=== PATIENT | female | born 1990 | race Caucasian/White ===

== ENCOUNTER 2017-08-25 08:30 | Outpatient (CLI) | payer BC ==
[2017-08-25 09:27] LABS: Appearance,Urine Turbid (Clear); Bacteria,Urine Rare /hpf; Bilirubin,Urine Negative (Negative); Blood,Urine Small (Negative); Budding Yeast,Urine Few /hpf; Color,Urine Yellow; Glucose,Urine (UA) Negative (Negative); Ketones,Urine Negative (Negative); Leukocyte Esterase,Urine Large (Negative); Mucus,Urine Rare /hpf; Nitrite,Urine Negative (Negative); Protein,Urine 1+ (Negative); RBC,Urine 26 /hpf (0-5); Squamous Epithelial Cell,Urine 6 /hpf (0-4); Urobilinogen,Urine <2.0 mg/dL (<2.0); WBC,Urine >182 /hpf (0-5)
[2017-08-25 09:34] VITALS: BP 126/86; PULSE 100; RESP 20; TEMP 98.3
[2017-08-25] MEDS ORDERED: ceFAZolin IN SWFI 2 GM/20 ML SYRINGE IVP ONE (09:43)
[2017-08-25] MEDS ORDERED: LACTATED RINGERS 1,000 ML IV SCH (09:45)
--- NOTE | 2017-08-25 11:27 | P.MSEPDOC ---
Presenting Problems - Arrival Data Date of Arrival on Unit: 08/25/17 Time of Arrival on Unit: 08:25 Mode of Transport: Ambulatory - Complaint OB-Reason for Admission/Chief Complaint: Signs/Symptoms UTI, Other Comment: right flank pain. hx of kidney infections left kidney. last infection 2013. several stints placed abt 10 years ago Medical History - Information : 3 Para: 2 Term: 2 : 0 Abortions: Spontaneous or Elective: 0 Number of Living Children: 2 - Gestational Age Gestational Age by NAVIN (wks/days): 37 Weeks and 1 Days Review of Systems - Review of Systems Constitutional: No problems Breast: No problems ENT: No problems Cardiovascular: No problems Respiratory: No problems Gastrointestinal: No problems Musculoskeletal: No problems Neurological: No problems Skin: No problems Comment: right flank pain. Vital Signs - Temperature Temperature: 98.3 F Temperature Source: Oral - Pulse Right Brachial Pulse Rate: 100 Pulse Assessment Method: Automatic Cuff - Respirations Respiratory Rate: 20 Oxygen Delivery Method: Room Air O2 Sat by Pulse Oximetry: 100 - Blood Pressure Right Arm Blood Pressure: 126/86 Blood Pressure Mean: 99 Blood Pressure Source: Automatic Cuff Medical Screen Scoring (Pre) - Cervical Exam Dilation: 0 cm = 0 Membranes: Intact - Uterine Contractions Frequency: > 5 minutes apart = 1 Duration: N/A Intensity: N/A - Maternal Vital Signs Maternal Temperature: N/A Maternal Blood Pressure: N/A Signs of Preeclampsia: N/A Maternal Respirations: N/A - Pain Assessment Pain Location and Character: Right, Back Pain Scale Used: Numeric (1 - 10) Pain Intensity: 5 Pain Management Goal: 2 Pain Description: *Acute Pain Frequency: Frequent Pain Duration: 2 Pain Duration Units: Days Pain Behavior: None Exhibited Pain Aggravating Factors: Activity, Position, Sitting, Standing Non-Pharmacological Interventions: Darkened Room - Maternal Trauma Maternal Trauma: N/A - Assessment Baseline FHR: 135 Heart Rate - NICHD Category: Category I (Normal) = 0 NST: Reactive Position: N/A Station: N/A - Total Score Total Score (Pre): 1 - Level of Risk Level of Risk: Low (0-5) Physician Notification (Pre) - Physician Notified Physician Notified Date: 08/25/17 Physician Notified Time: 09:45 Physician/Practitioner Notifed:: romo Spoke With: demetrius New Order Received: Yes - Notification Comment Comment: iv, lr, kefzol, urine culture, to take next dose of antibiotic 8 hr post first dose. pt informed. Disposition - Disposition OB Disposition: Discharge to home I agree with the RN Medical Screening Exam: Yes Risk & Benefit of care provided described in d/c instruction: Yes Diagnosis: URINARY TRACT INFECTION, SITE NOT SPECIFIED
== END 2017-08-25 11:25 | disposition home or self-care (01) ==
LOC: FBPOP 08:30
PROVIDERS: ATTEND Obstetrics & Gynecology
DX: O23.43 Unspecified infection of urinary tract in pregnancy, third trimester (principal); Z3A.37 37 weeks gestation of pregnancy
CPT/HCPCS: 59025; 99214; 96360; 96375; 81001; 87086; J0690

== ENCOUNTER 2017-09-06 06:00 | Inpatient (IN) | payer BC ==
[2017-09-06] MEDS ORDERED: LIDOCAINE 1% (PF) 10 MG/ML (30 ML SDV) SQ PRN (06:17)
[2017-09-06] MEDS ORDERED: OXYTOCIN 10 UNIT/ML 1 ML VIAL IM PRN (06:17)
[2017-09-06] MEDS ORDERED: CARBOPROST TROMETHAMINE 250 MCG/ML 1 ML AMP IM PRN (06:17)
[2017-09-06] MEDS ORDERED: METHYLERGONOVINE 0.2 MG/ML 1 ML AMP IM PRN (06:17)
[2017-09-06] MEDS ORDERED: TERBUTALINE 1 MG/ML VIAL SQ PRN (06:17)
[2017-09-06] MEDS ORDERED: OXYTOCIN 20 UNITS/1000 ML NS 1,000 ML IV SCH ×2 (06:30→12:45)
[2017-09-06] MEDS ORDERED: LACTATED RINGERS 1,000 ML IV SCH (06:30)
[2017-09-06 06:40] LABS: Basophils % (A) 0 %; Eosinophils # (A) 0.2 k/uL (0-0.7); Eosinophils % (A) 2 %; HCT 33.6 % (34.0-46.0); HGB 10.6 gm/dL (11.4-16.0); Lymphocytes # (A) 1.8 k/uL (1.0-4.8); Lymphocytes % (A) 22 %; MCH 28.6 pg (25.0-35.0); MCHC 31.7 g/dL (31.0-37.0); MCV 90.2 fL (80.0-100.0); Mean Platelet Volume 7.2; Monocytes # (A) 0.5 k/uL (0-1.0); Monocytes % (A) 7 %; Neutrophils # (A) 5.4 k/uL (1.3-7.7); Neutrophils % (A) 67 %; Platelet Count 322 k/uL (150-450); RBC 3.72 m/uL (3.80-5.40); RDW 15.8 % (11.5-15.5)
[2017-09-06 07:01] VITALS: BMI 25.2
--- NOTE | 2017-09-06 07:51 | P.HPOB ---
History of Present Illness H&P Date: 09/06/17 Chief Complaint: Induction of labor 26-year-old presents at 39 weeks for induction of labor. Her cervix is 2 cm dilated, 70% effaced, and -2 station. She is porter irregularly. heart tones are 130-135 with moderate variability and reactive. Review of Systems All systems: negative Constitutional: Denies chills, Denies fever Eyes: denies blurred vision, denies pain Ears, nose, mouth and throat: Denies headache, Denies sore throat Cardiovascular: Denies chest pain, Denies shortness of breath Respiratory: Denies cough Gastrointestinal: Denies abdominal pain, Denies diarrhea, Denies nausea, Denies vomiting Genitourinary: Denies dysuria, Denies hematuria Musculoskeletal: Denies myalgias Integumentary: Denies pruritus, Denies rash Neurological: Denies numbness, Denies weakness Psychiatric: Denies anxiety, Denies depression Endocrine: Denies fatigue, Denies weight change Past Medical History Past Medical History: Renal Disease Additional Past Medical History / Comment(s): multiple ureter stents. Obstetric history: She has had 2 previous vaginal deliveries the first was 5 lbs. 15 oz. the second one was 6 lbs. 1 oz. This is her third she's had care with me since 11 weeks. Blood type O+, antibodies negative, rubella immune, RPR nonreactive, hep is B-, HIV nonreactive, toxoplasmosis negative. GBS negative. History of Any Multi-Drug Resistant Organisms: None Reported Additional Past Surgical History / Comment(s): multiple ureter stents Past Anesthesia/Blood Transfusion Reactions: No Reported Reaction Smoking Status: Never smoker Past Alcohol Use History: None Reported Past Drug Use History: None Reported - Past Family History Father Family Medical History: Diabetes Mellitus Mother Family Medical History: Hypertension Medications and Allergies Home Medications Medication Instructions Recorded Confirmed Type Calcium Carbonate [Tums] 500 mg PO DIRECTED PRN 08/25/17 09/06/17 History Folic Acid 0.4 mg PO DAILY 08/25/17 09/06/17 History Pnv,Calcium 72/Iron/Folic Acid 1 tab PO DAILY 08/25/17 09/06/17 History [ Plus Tablet] Ranitidine HCl [Zantac] 150 mg PO BID 08/25/17 09/06/17 History Allergies Allergy/AdvReac Type Severity Reaction Status Date / Time No Known Allergies Allergy Verified 09/06/17 06:12 Exam Osteopathic Statement: *. No significant issues noted on an osteopathic structural exam other than those noted in the History and Physical/Consult. - Vital Signs Vital signs: Vital Signs Temp Pulse Resp BP Pulse Ox 09/06/17 06:43 97.4 F L 90 18 134/89 100 Intake and Output 09/05/17 09/06/17 09/06/17 22:59 06:59 14:59 Other: Weight 62.596 kg Heart: Regular rate and rhythm Lungs: Clear to auscultation bilaterally Abdomen: Soft, nontender Extremities: Negative Homans sign Results Result Diagrams: 09/06/17 06:30 Abnormal Lab Results - Last 24 Hours (Table) 09/06/17 Range/Units 06:30 RBC 3.72 L (3.80-5.40) m/uL Hgb 10.6 L (11.4-16.0) gm/dL Hct 33.6 L (34.0-46.0) % RDW 15.8 H (11.5-15.5) % Assessment and Plan (1) Normal labor Current Visit: Yes Status: Acute Code(s): O80 - ENCOUNTER FOR FULL-TERM UNCOMPLICATED DELIVERY; Z37.9 - OUTCOME OF DELIVERY, UNSPECIFIED SNOMED Code(s ): 12526941 Plan: 1. Admit to family place for induction of labor 2. Amniotomy and Pitocin 3. Anticipate normal vaginal delivery
[2017-09-06] MEDS ORDERED: LANOLIN CREAM 5 GM TUBE TOPICAL PRN (12:42)
[2017-09-06] MEDS ORDERED: BENZOCAINE/MENTHOL SPRAY 1 GM/SPRAY AEROSOL TOPICAL PRN (12:42)
[2017-09-06] MEDS ORDERED: diphenhydrAMINE 25 MG CAP PO PRN (12:42)
[2017-09-06] MEDS ORDERED: SIMETHICONE 80 MG CHEWABLE PO PRN (12:42)
[2017-09-06] MEDS ORDERED: ZOLPIDEM 5 MG TAB PO PRN (12:42)
[2017-09-06] MEDS ORDERED: WITCH HAZEL 1 EACH MED..PAD TOPICAL PRN (12:42)
[2017-09-06] MEDS ORDERED: HYDROCORTISONE 2.5% RECTAL CREAM 30 GM TUBE RECTAL PRN (12:42)
[2017-09-06] MEDS ORDERED: diphenhydrAMINE 50 MG CAP PO PRN (12:42)
[2017-09-06] MEDS ORDERED: diphenhydrAMINE 50 MG/ML 1 ML VIAL IVP PRN ×2 (12:42)
[2017-09-06] MEDS ORDERED: HYDROcodone/APAP 5-325MG 1 EACH TAB PO PRN (12:43)
[2017-09-06] MEDS ORDERED: CALCIUM CARBONATE 500 MG CHEWABLE PO PRN (12:43)
--- NOTE | 2017-09-06 12:46 | P.PROBDLV ---
Vaginal Delivery Note - . Vaginal Delivery Note: 26-year-old presents at 39 weeks for induction of labor. Her cervix was 2 cm dilated, 70% effaced, and -2 station. She was porter irregularly. heart tones 135-140 with moderate variability and reactive. Pitocin was started and amniotomy was performed at 7 AM clear fluid noted. Pitocin was increased per protocol and patient was progressing porter every 2 minutes. Her cervix is completely dilated at 12:30pm. She pushed, delivered a viable male over intact perineum at 12:32 PM. Head delivered OA, anterior shoulder which was the right shoulder delivered gentle downward traction followed by posterior shoulder and rest of body. Nose and mouth bulb suctioned cord clamped and cut and placed mother's abdomen. Apgars 9, 9, weight 7 lbs. 8 oz. Placenta delivered spontaneously, intact with three-vessel cord at 1235. Vagina, cervix, perineum inspected. No lacerations noted. Estimated blood loss 150 mL. Mother and baby in stable condition.
[2017-09-06] MEDS: IBUPROFEN 600 MG TAB PO PRN ×2 (13:04→18:57)
[2017-09-06] MEDS: ACETAMINOPHEN TAB 325 MG TAB PO PRN (17:30)
[2017-09-06] MEDS: SENNOSIDES-DOCUSATE SODIUM 1 EACH TAB PO SCH (20:06)
[2017-09-06 20:32] VITALS: RESP 18
[2017-09-06] MEDS: FAMOTIDINE 20 MG TAB PO SCH (21:21)
[2017-09-07] MEDS: IBUPROFEN 600 MG TAB PO PRN ×2 (00:18→08:05)
[2017-09-07] MEDS: SENNOSIDES-DOCUSATE SODIUM 1 EACH TAB PO SCH (08:33)
[2017-09-07 08:41] VITALS: BP 122/81; PULSE 80; TEMP 97.6
--- NOTE | 2017-09-07 09:25 | P.DS ---
Providers Date of admission: 09/06/17 06:05 Expected date of discharge: 09/07/17 Attending physician: Yudi De La Rosa Primary care physician: Sawyer Caro - Discharge Diagnosis(es) (1) Normal labor Current Visit: Yes Status: Resolved (2) Status post normal vaginal delivery Current Visit: Yes Status: Acute Hospital Course: Patient presented for induction of labor. She underwent normal vaginal delivery. Her course was uncomplicated. She denies nausea, vomiting , chest pain, shortness of breath or calf pain. She is voiding and ambulating without difficulty. She is complaining of low back pain due to her labor which is helped by and Motrin. She'll be discharged home day #1 in stable condition to follow-up with me in 6 weeks. Plan - Discharge Summary New Discharge Prescriptions: New Ibuprofen [Motrin] 600 mg PO Q6HR PRN #30 tab PRN Reason: Mild Pain Or Fever >= 100.5 No Action Folic Acid 0.4 mg PO DAILY Ranitidine HCl [Zantac] 150 mg PO BID Pnv,Calcium 72/Iron/Folic Acid [ Plus Tablet] 1 tab PO DAILY Calcium Carbonate [Tums] 500 mg PO DIRECTED PRN PRN Reason: Heartburn Discharge Medication List Calcium Carbonate [Tums] 500 mg PO DIRECTED PRN 08/25/17 [History] Folic Acid 0.4 mg PO DAILY 08/25/17 [History] Pnv,Calcium 72/Iron/Folic Acid [ Plus Tablet] 1 tab PO DAILY 08/25/17 [ History] Ranitidine HCl [Zantac] 150 mg PO BID 08/25/17 [History] Ibuprofen [Motrin] 600 mg PO Q6HR PRN #30 tab 09/07/17 [Rx] Follow up Appointment(s)/Referral(s): Yudi De La Rosa DO [Doctor of Osteopathic Medicine] - 6 Weeks
[2017-09-07] MEDS: FAMOTIDINE 20 MG TAB PO SCH (12:42)
[2017-09-07] MEDS: ACETAMINOPHEN TAB 325 MG TAB PO PRN (12:42)
== END 2017-09-07 13:55 | disposition home or self-care (01) | DRG 775 ==
LOC: 4FBP 06:05
PROVIDERS: ADMIT Obstetrics & Gynecology; ATTEND Obstetrics & Gynecology
PROC: 10E0XZZ Delivery of Products of Conception, External Approach (ICD-10-PCS; principal; 2017-09-06)
PROC: 10907ZC Drainage of Amniotic Fluid, Therapeutic from Products of Conception, Via Natural or Artificial Opening (ICD-10-PCS; 2017-09-06)
DX: O99.62 Diseases of the digestive system complicating childbirth (principal); M54.5 Low back pain; R12 Heartburn; Z37.0 Single live birth; Z3A.39 39 weeks gestation of pregnancy; Z82.49 Family history of ischemic heart disease and other diseases of the circulatory system; Z83.3 Family history of diabetes mellitus
CPT/HCPCS: 85025; 88307

== ENCOUNTER → 2018-08-25 | Outpatient (CLI) | payer BC ==
--- NOTE | 2018-08-25 16:46 | US ---
EXAMINATION TYPE: Transabdominal DATE OF EXAM: 11/19/17 COMPARISON: NONE CLINICAL HISTORY: Bleeding 1st trimester O46.91. EXAM PERFORMED: Transvaginal (TV) and Transabdominal (TA) EXAM MEASUREMENTS: GESTATIONAL AGE / DATING Physician Established: Not yet established days) Dates by LMP: ( 8 weeks/3 days) EDC: 04/03/2019 Dates by First Scan: no prior Dates by Current Scan for: ( 7 weeks/1 days) EDC: 04/10/2019 MATERNAL ANATOMY Uterus: 6.5 x9.3 x 5.6 Right Ovary: 2.2 x 1.5 x 1.9 Left Ovary: 2.9 x 2.4 x 1.8 Post CDS / Adnexa: wnl Presence of free fluid: no Presence of corpus luteal cyst: no Presence of subchorionic bleed: no GESTATION / SURVEY CRL: 5.5 mm(6 weeks/3 days) MSD: 2.4 cm(7 weeks/4 days) Yolk Sac (normal less than 6mm): 5 Heart Rate: 142 bpm Rhythm: Normal IUP: Viable IUP Date of LMP: 06/27/2018 Beta HcG (if available): na Single live intrauterine gestation is confirmed as gestational sac, yolk sac, and pole are iden tified. No free fluid is seen in pelvic cul-de-sac. Both ovaries are identified. No suspicious extraovarian adnexal lesions are seen. IMPRESSION: Single live intrauterine gestation is confirmed, mean crown-rump length is 0.6 cm corresponding to 6 week 3 day old fetus.
== END ==
LOC: RADUSWWP 15:36
PROVIDERS: ATTEND Obstetrics & Gynecology
DX: O46.91 Antepartum hemorrhage, unspecified, first trimester (principal); O20.9 Hemorrhage in early pregnancy, unspecified; Z3A.01 Less than 8 weeks gestation of pregnancy
CPT/HCPCS: 76801; 76817; 84702

== ENCOUNTER 2019-03-19 10:47 | Outpatient (CLI) | payer BC ==
[2019-03-19 15:55] VITALS: BP 122/78; PULSE 102; RESP 18
--- NOTE | 2019-03-26 09:03 | P.MSEPDOC ---
Presenting Problems - Arrival Data Date of Arrival on Unit: 03/19/19 Time of Arrival on Unit: 10:37 Mode of Transport: Ambulatory - Complaint OB-Reason for Admission/Chief Complaint: Possible Onset of Labor Comment: Pt here with c/o spotting last night and small spotting on tissue when wiping this AM. Medical History - Information : 4 Para: 3 - Gestational Age Gestational Age by NAVIN (wks/days): 36 Weeks and 6 Days Review of Systems - Review of Systems Constitutional: No problems Breast: No problems ENT: No problems Cardiovascular: No problems Respiratory: No problems Gastrointestinal: No problems Genitourinary: No problems Musculoskeletal: No problems Neurological: No problems Skin: No problems Vital Signs - Temperature Temperature Source: Oral - Pulse Right Brachial Pulse Rate: 102 - Respirations Respiratory Rate: 18 Oxygen Delivery Method: Room Air O2 Sat by Pulse Oximetry: 99 - Blood Pressure Right Arm Blood Pressure: 122/78 Blood Pressure Mean: 92 Blood Pressure Source: Automatic Cuff Medical Screen Scoring (Pre) - Cervical Exam Dilation: 0 cm = 0 Effacement: Exam Deferred Membranes: Intact - Uterine Contractions Frequency: N/A Duration: N/A Intensity: N/A - Maternal Vital Signs Maternal Temperature: N/A Maternal Blood Pressure: N/A Signs of Preeclampsia: N/A Maternal Respirations: N/A - Maternal Trauma Maternal Trauma: N/A - Assessment - Baby A Baseline FHR: 145 Heart Rate - NICHD Category: Category I (Normal) = 0 NST: Reactive Position: N/A Station: N/A - Total Score - Baby A Total Score - Baby A: 0 - Total Score - Baby B Total Score - Baby B: 0 - Total Score - Baby C Total Score - Baby C: 0 - Level of Risk - Baby A Level of Risk - Baby A: Low (0-5) - Level of Risk - Baby B Level of Risk - Baby B: Low (0-5) - Level of Risk - Baby C Level of Risk - Baby C: Low (0-5) Physician Notification (Pre) - Physician Notified Physician Notified Date: 03/19/19 Physician Notified Time: 13:15 Physician/Practitioner Notifed:: Dr. De La Rosa Spoke With: Dr. De La Rosa New Order Received: Yes (Cervical check; if less than 5cm send home) Disposition - Disposition OB Disposition: Discharge to home Transferred to:: home Discharge Date: 03/19/19 Discharge Time: 13:40 I agree with the RN Medical Screening Exam: Yes Risk & Benefit of care provided described in d/c instruction: Yes Diagnosis: FALSE LABOR BEFORE 37 COMPLETED WEEKS OF GEST, THIRD TRI
== END 2019-03-19 13:30 | disposition home or self-care (01) ==
LOC: FBPOP 10:47
PROVIDERS: ATTEND Obstetrics & Gynecology
DX: O47.03 False labor before 37 completed weeks of gestation, third trimester (principal); Z3A.36 36 weeks gestation of pregnancy
CPT/HCPCS: 59025; 99213

== ENCOUNTER 2019-04-03 06:00 | Inpatient (IN) | payer BC ==
[2019-04-03] MEDS ORDERED: CARBOPROST TROMETHAMINE 250 MCG/ML 1 ML AMP IM PRN (06:14)
[2019-04-03] MEDS ORDERED: OXYTOCIN 10 UNIT/ML 1 ML VIAL IM PRN (06:14)
[2019-04-03] MEDS ORDERED: AMPICILLIN 2,000 MG in SODIUM CHLORIDE 0.9% 100 ML IVPB STA (06:14)
[2019-04-03] MEDS ORDERED: METHYLERGONOVINE 0.2 MG/ML 1 ML AMP IM PRN (06:14)
[2019-04-03] MEDS ORDERED: TERBUTALINE 1 MG/ML VIAL SQ PRN (06:14)
[2019-04-03] MEDS ORDERED: LIDOCAINE 0.5% (PF) 5 MG/ML (50 ML SDV) SQ PRN (06:14)
[2019-04-03] MEDS ORDERED: LACTATED RINGERS 1,000 ML IV SCH (06:15)
[2019-04-03] MEDS ORDERED: OXYTOCIN 30 UNITS/500 ML NS 30 UNIT in SALINE 1 500ML.BAG IV SCH (06:15)
[2019-04-03 06:19] VITALS: BMI 25.9
[2019-04-03 06:39] LABS: Basophils % (A) 0 %; Eosinophils # (A) 0.2 k/uL (0-0.7); Eosinophils % (A) 2 %; HCT 35.8 % (34.0-46.0); HGB 11.7 gm/dL (11.4-16.0); Lymphocytes # (A) 1.9 k/uL (1.0-4.8); Lymphocytes % (A) 17 %; MCHC 32.8 g/dL (31.0-37.0); MCV 91.4 fL (80.0-100.0); Mean Platelet Volume 6.7; Monocytes # (A) 0.7 k/uL (0-1.0); Monocytes % (A) 7 %; Neutrophils # (A) 8.1 k/uL (1.3-7.7); Neutrophils % (A) 73 %; Platelet Count 331 k/uL (150-450); RBC 3.91 m/uL (3.80-5.40); RDW 15.3 % (11.5-15.5); WBC 11.1 k/uL (3.8-10.6)
[2019-04-03] MEDS ORDERED: AMPICILLIN 1,000 MG in SODIUM CHLORIDE 0.9% 50 ML IVPB SCH (10:15)
[2019-04-03] MEDS ORDERED: diphenhydrAMINE 50 MG CAP PO PRN (14:34)
[2019-04-03] MEDS ORDERED: ZOLPIDEM 5 MG TAB PO PRN (14:34)
[2019-04-03] MEDS ORDERED: WITCH HAZEL 1 EACH MED..PAD TOPICAL PRN (14:34)
[2019-04-03] MEDS ORDERED: HYDROCORTISONE 2.5% RECTAL CREAM 30 GM TUBE RECTAL PRN (14:34)
[2019-04-03] MEDS ORDERED: diphenhydrAMINE 25 MG CAP PO PRN (14:34)
[2019-04-03] MEDS ORDERED: SIMETHICONE 80 MG CHEWABLE PO PRN (14:34)
[2019-04-03] MEDS ORDERED: diphenhydrAMINE 50 MG/ML 1 ML VIAL IVP PRN ×2 (14:34)
[2019-04-03] MEDS ORDERED: LANOLIN CREAM 5 GM TUBE TOPICAL PRN (14:34)
[2019-04-03] MEDS ORDERED: ACETAMINOPHEN TAB 325 MG TAB PO PRN (14:34)
[2019-04-03] MEDS ORDERED: BENZOCAINE/MENTHOL SPRAY 1 GM/SPRAY AEROSOL TOPICAL PRN (14:34)
[2019-04-03] MEDS ORDERED: OXYTOCIN 20 UNITS/1000 ML NS 1,000 ML IV SCH (14:45)
[2019-04-03] MEDS: IBUPROFEN 600 MG TAB PO PRN (19:17)
[2019-04-03] MEDS: SENNOSIDES-DOCUSATE SODIUM 1 EACH TAB PO SCH (19:52)
[2019-04-04] MEDS: IBUPROFEN 600 MG TAB PO PRN ×2 (01:14→08:20)
[2019-04-04 04:17] VITALS: TEMP 97.7
[2019-04-04] MEDS: SENNOSIDES-DOCUSATE SODIUM 1 EACH TAB PO SCH (08:19)
[2019-04-04 08:32] VITALS: BP 119/79; PULSE 73; RESP 18
--- NOTE | 2019-04-04 10:23 | P.DS ---
Providers Date of admission: 04/03/19 06:02 Expected date of discharge: 04/04/19 Attending physician: Yudi De La Rosa Primary care physician: Stated None - Discharge Diagnosis(es) (1) Status post normal vaginal delivery Current Visit: No Status: Acute Hospital Course: Patient presented for induction of labor. She underwent a normal vaginal delivery. Her course was uncomplicated. She'll be discharged home day #1 in stable condition to follow-up with me in 6 weeks. Plan - Discharge Summary New Discharge Prescriptions: No Action Folic Acid 0.4 mg PO DAILY Ranitidine HCl [Zantac] 150 mg PO DAILY Pnv,Calcium 72/Iron/Folic Acid [ Plus Tablet] 1 tab PO DAILY Discharge Medication List Folic Acid 0.4 mg PO DAILY 08/25/17 [History] Pnv,Calcium 72/Iron/Folic Acid [ Plus Tablet] 1 tab PO DAILY 08/25/17 [History] Ranitidine HCl [Zantac] 150 mg PO DAILY 08/25/17 [History] Follow up Appointment(s)/Referral(s): Yudi De La Rosa DO [Doctor of Osteopathic Medicine] - 6 Weeks Discharge Disposition: HOME SELF-CARE
--- NOTE | 2019-04-04 10:29 | P.HPOB ---
History of Present Illness H&P Date: 04/04/19 Chief Complaint: Induction of labor 28-year-old presents at 39 weeks for induction of labor. Her cervix is 1 cm dilated, 70% effaced, and -2 station. She was porter irregularly. heart tones 130 with moderate variability and reactive Review of Systems All systems: negative Constitutional: Denies chills, Denies fever Eyes: denies blurred vision, denies pain Ears, nose, mouth and throat: Denies headache, Denies sore throat Cardiovascular: Denies chest pain, Denies shortness of breath Respiratory: Denies cough Gastrointestinal: Denies abdominal pain, Denies diarrhea, Denies nausea, Denies vomiting Genitourinary: Denies dysuria, Denies hematuria Musculoskeletal: Denies myalgias Integumentary: Denies pruritus, Denies rash Neurological: Denies numbness, Denies weakness Psychiatric: Denies anxiety, Denies depression Endocrine: Denies fatigue, Denies weight change Past Medical History Past Medical History: Renal Disease Additional Past Medical History / Comment(s): multiple ureter stents. Obstetric history: She has had 3 previous vaginal deliveries. This is her fourth she's had care with me since the first trimester. Blood type O+, antibodies negative, rubella immune, RPR nonreactive, hep is B-, HIV nonreactive, toxoplasmosis negative. GBS positive. History of Any Multi-Drug Resistant Organisms: None Reported Past Surgical History: No Surgical Hx Reported, Breast Surgery Additional Past Surgical History / Comment(s): multiple ureter stents Past Anesthesia/Blood Transfusion Reactions: No Reported Reaction Past Psychological History: No Psychological Hx Reported Smoking Status: Never smoker Past Alcohol Use History: None Reported Past Drug Use History: None Reported - Past Family History Father Family Medical History: Diabetes Mellitus Mother Family Medical History: Hypertension Medications and Allergies Home Medications Medication Instructions Recorded Confirmed Type Folic Acid 0.4 mg PO DAILY 08/25/17 04/03/19 History Pnv,Calcium 72/Iron/Folic Acid 1 tab PO DAILY 08/25/17 04/03/19 History [ Plus Tablet] Ranitidine HCl [Zantac] 150 mg PO DAILY 08/25/17 04/03/19 History Allergies Allergy/AdvReac Type Severity Reaction Status Date / Time No Known Allergies Allergy Verified 04/03/19 06:13 Exam Osteopathic Statement: *. No significant issues noted on an osteopathic st ructural exam other than those noted in the History and Physical/Consult. Vital Signs Temp Pulse Resp BP Pulse Ox 04/04/19 08:00 97.7 F 73 18 119/79 04/04/19 04:00 97.7 F 92 14 123/87 98 04/04/19 00:00 97.6 F 66 16 126/74 99 04/03/19 20:00 97.9 F 89 18 126/84 98 04/03/19 16:00 98.2 F 82 14 126/79 04/03/19 15:30 85 16 127/82 04/03/19 15:00 84 14 133/67 04/03/19 14:45 98.4 F 86 14 140/64 04/03/19 14:30 93 14 143/89 04/03/19 14:15 90 14 130/84 04/03/19 14:00 98.6 F 88 14 120/79 Intake and Output 04/03/19 04/04/19 04/04/19 22:59 06:59 14:59 Other: # Voids 1 1 Heart: Regular rate and rhythm Lungs: Clear to auscultation bilaterally Abdomen: Soft, nontender Extremities: Negative Homans sign Results Result Diagrams: 04/03/19 06:30 Assessment and Plan (1) Normal labor Current Visit: No Status: Resolved Code(s): O80 - ENCOUNTER FOR FULL-TERM UNCOMPLICATED DELIVERY; Z37.9 - OUTCOME OF DELIVERY, UNSPECIFIED SNOMED Code(s): 93701307 Plan: 1. Induction of labor with amniotomy and Pitocin 2. Anticipate normal vaginal delivery
--- NOTE | 2019-04-04 10:31 | P.PROBDLV ---
Vaginal Delivery Note - . Vaginal Delivery Note: 28-year-old presents at 39 weeks for induction of labor. Her cervix is 1 cm dilated, 70% effaced, and -2 station. She was porter irregularly. heart tones 130 with moderate variability and reactive. Pitocin augmentation was started. Amniotomy was performed at 8:06 AM and clear fluid noted. She progressed throughout the day and her cervix was completely dilated at 1345. She pushed, and delivered a viable female over intact perineum under epidural anesthesia at 1346. Head delivered OA, nuchal cord 1 easily reduced, anterior shoulder delivered gentle downward guidance of the posterior shoulder and rest of body. Nose and mouth bulb suctioned, cord clamped and cut, placed mother's abdomen. Apgars 9, 9, weight 6 pounds. Placenta delivered spontaneously, intact with three-vessel cord at 1350. Vagina, cervix, and perineum were inspected. No lacerations noted. Estimated blood loss 200 mL. Mother and baby in stable condition.
== END 2019-04-04 15:40 | disposition home or self-care (01) | DRG 807 ==
LOC: 4FBP 06:02
PROVIDERS: ADMIT Obstetrics & Gynecology; ATTEND Obstetrics & Gynecology
PROC: 10907ZU Drainage of Amniotic Fluid, Diagnostic from Products of Conception, Via Natural or Artificial Opening (ICD-10-PCS; principal; 2019-04-03)
PROC: 10E0XZZ Delivery of Products of Conception, External Approach (ICD-10-PCS; principal; 2019-04-03)
PROC: 00HU33Z Insertion of Infusion Device into Spinal Canal, Percutaneous Approach (ICD-10-PCS; principal; 2019-04-03)
PROC: 3E0R3BZ Introduction of Anesthetic Agent into Spinal Canal, Percutaneous Approach (ICD-10-PCS; principal; 2019-04-03)
DX: O98.82 Other maternal infectious and parasitic diseases complicating childbirth (principal); Z37.0 Single live birth; O99.89 Other specified diseases and conditions complicating pregnancy, childbirth and the puerperium; N28.9 Disorder of kidney and ureter, unspecified; B95.1 Streptococcus, group B, as the cause of diseases classified elsewhere; Z3A.39 39 weeks gestation of pregnancy; Z82.49 Family history of ischemic heart disease and other diseases of the circulatory system; Z83.3 Family history of diabetes mellitus
CPT/HCPCS: 85025; 86850; 86900; 86901

== ENCOUNTER 2020-02-11 06:40 | Day surgery (SDC) | payer BC ==
[2020-02-09 11:10] VITALS: BMI 21.9
--- NOTE | 2020-02-10 22:50 | P.HPOB ---
History of Present Illness H&P Date: 02/10/20 Chief Complaint: Family planning 29-year-old presents for laparoscopic tubal ligation. Review of Systems All systems: negative Constitutional: Denies chills, Denies fever Eyes: denies blurred vision, denies pain Ears, nose, mouth and throat: Denies headache, Denies sore throat Cardiovascular: Denies chest pain, Denies shortness of breath Respiratory: Denies cough Gastrointestinal: Denies abdominal pain, Denies diarrhea, Denies nausea, Denies vomiting Genitourinary: Denies dysuria, Denies hematuria Musculoskeletal: Denies myalgias Integumentary: Denies pruritus, Denies rash Neurological: Denies numbness, Denies weakness Psychiatric: Denies anxiety, Denies depression Endocrine: Denies fatigue, Denies weight change Past Medical History Past Medical History: Renal Disease Additional Past Medical History / Comment(s): hx migraines, anemia, hx blockage in ureter History of Any Multi-Drug Resistant Organisms: None Reported Past Surgical History: Breast Surgery Additional Past Surgical History / Comment(s): multiple ureter stents, laparoscopy surgery to removed blockage in ureter, breast augmentation Past Anesthesia/Blood Transfusion Reactions: No Reported Reaction Smoking Status: Never smoker - Past Family History Father Family Medical History: Diabetes Mellitus Mother Family Medical History: No Reported History Medications and Allergies Home Medications Medication Instructions Recorded Confirmed Type Pnv,Calcium 72/Iron/Folic Acid 1 tab PO DAILY 08/25/17 02/09/20 History [ Plus Tablet] Awilda Control Pill 1 tab PO 1200 02/09/20 02/09/20 History Allergies Allergy/AdvReac Type Severity Reaction Status Date / Time No Known Allergies Allergy Verified 02/09/20 11:03 Exam Osteopathic Statement: *. No significant issues noted on an osteopathic structural exam other than those noted in the History and Physical/Consult. Heart: Regular rate and rhythm Lungs: Clear to auscultation bilaterally Abdomen: Soft, nontender Extremities: Negative Homans sign Assessment and Plan (1) Family planning Status: Acute Code(s): Z30.09 - ENCOUNTER FOR OTH GENERAL CNSL AND ADVICE ON CONTRACEPTION SNOMED Code(s): 460081399 Plan: 1. Laparoscopic tubal ligation. All risks and benefits and alternatives have been discussed with the patient and she expressed complete understanding.
[~2020-02-11 06:40] MED LIST: DEXAMETHASONE SOD PHOSPHATE 10 MG/ML 1 ML VIAL IV ONE; HYDROmorphone 0.5 MG/0.5 ML SYRINGE IVP PRN; LACTATED RINGERS 1,000 ML IV SCH; ONDANSETRON 4 MG/2 ML VIAL IVP ONE; Pre Op ABX Message 1 EACH MISC MISCELLANE ONE
[2020-02-11] MEDS ORDERED: ONDANSETRON 4 MG/2 ML VIAL ONE (07:11)
[2020-02-11 07:32] VITALS: TEMP 97.1
[2020-02-11] MEDS ORDERED: fentaNYL (PF) 50 MCG/ML 2 ML AMP ONE (07:53)
[2020-02-11] MEDS ORDERED: GLYCOPYRROLATE 0.2 MG/ML 2 ML VIAL ONE (07:53)
[2020-02-11] MEDS ORDERED: MIDAZOLAM 2 MG/2 ML VIAL ONE (07:53)
[2020-02-11] MEDS ORDERED: LIDOCAINE 1% INJ 10MG/ML (20 ML MDV) ONE (07:53)
[2020-02-11] MEDS ORDERED: PROPOFOL 10 MG/ML 20 ML VIAL IV ONE (07:53)
[2020-02-11] MEDS ORDERED: SUCCINYLCHOLINE CHLORIDE 100 MG/5 ML SYR IV ONE (07:53)
[2020-02-11] MEDS ORDERED: ROCURONIUM BROMIDE 10 MG/ML 5 ML VIAL IV ONE (07:53)
[2020-02-11] MEDS ORDERED: NEOSTIGMINE 1 MG/ML 10 ML VIAL ONE (07:53)
[2020-02-11] MEDS ORDERED: BUPIVACAIN-EPI 0.25%-1:200,000 30 ML VIAL SQ ONE ×2 (08:21)
[2020-02-11] MEDS ORDERED: KETOROLAC 30 MG/ML 1 ML VIAL IVP ONE (08:52)
[2020-02-11] MEDS ORDERED: HYDROmorphone 1 MG/ML 1 ML SYRINGE IVP ONE (08:55)
--- NOTE | 2020-02-11 09:02 | P.OP ---
Date of Procedure: 02/11/20 Preoperative Diagnosis: 1. Family planning Postoperative Diagnosis: 1. Family planning Procedure(s) Performed: Laparoscopic tubal ligation Anesthesia: UBALDO Surgeon: Yudi De La Rosa Estimated Blood Loss (ml): 2 IV fluids (ml): 400 Urine output (ml): 50 Pathology: none sent Condition: stable Disposition: PACU Operative Findings: Normal uterus, tubes, ovaries. Description of Procedure: Patient was taken to the operating room where general anesthesia was obtained without difficulty. She was prepped and draped in normal sterile fashion in the dorsal lithotomy position, legs placed in the Brody stirrups. Bladder drained of all urine. [place] speculum placed in the vagina and the anterior lip the cervix was grasped with single-tooth tenaculum. The uterus is sounded to 8 cm and the kroner manipulator was placed. Attention was then turned to the abdomen and gloves were changed. A 10 mm infraumbilical incision was made the scalpel and 10 mm optical trocar was placed under direct visualization. A 5 mm suprapubic Incision was made and a 5 mm optical trocar was placed under direct visualization. Survey of the pelvis revealed normal uterus tubes and ovaries. The left fallopian tube was grasped with a Kleppinger and fulgurated 2-3 cm on this side in the ampullar portion. The right fallopian tube was grasped with a Kleppinger and fulgurated 2-3 cm in the ampullar portion. All instruments were then removed from the abdomen and vagina. The 10 mm infraumbilical incision was closed with 0 Vicryl and the fascial layer and then 4-0 Vicryl in a subcuticular fashion. The 5 mm incision was closed with 4-0 Vicryl in a subcuticular fashion. Patient tolerated procedure well, sponge and instrument counts correct 2 and she was taken to recovery room in stable condition.
[2020-02-11] MEDS ORDERED: LACTATED RINGERS 1,000 ML IV ONE (09:34)
[2020-02-11 10:02] VITALS: PULSE 70
[2020-02-11 10:47] VITALS: BP 124/80; RESP 18
== END 2020-02-11 11:00 | disposition home or self-care (01) ==
LOC: OR 06:40
PROVIDERS: ATTEND Obstetrics & Gynecology
DX: Z30.2 Encounter for sterilization (principal); D64.9 Anemia, unspecified; Z86.69 Personal history of other diseases of the nervous system and sense organs; Z79.3 Long term (current) use of hormonal contraceptives; Z98.890 Other specified postprocedural states; Z83.3 Family history of diabetes mellitus
CPT/HCPCS: 81025; 58670; J2250; J1100; J2710; J2405; J2001; J3010; J1885; J1170 ×2; J0330; J2704

== ENCOUNTER 2022-02-23 06:03 | Day surgery (SDC) | payer BC ==
[2022-02-20 11:31] VITALS: BMI 22.3
--- NOTE | 2022-02-22 16:48 | P.HPOB ---
History of Present Illness H&P Date: 02/22/22 Chief Complaint: menorrhagia 31 year old presents for D&C hysteroscopy and endometrial ablation with NovaSure. Review of Systems All systems: negative Constitutional: Denies chills, Denies fever Eyes: denies blurred vision, denies pain Ears, nose, mouth and throat: Denies headache, Denies sore throat Cardiovascular: Denies chest pain, Denies shortness of breath Respiratory: Denies cough Gastrointestinal: Denies abdominal pain, Denies diarrhea, Denies nausea, Denies vomiting Genitourinary: Denies dysuria, Denies hematuria Musculoskeletal: Denies myalgias Integumentary: Denies pruritus, Denies rash Neurological: Denies numbness, Denies weakness Psychiatric: Denies anxiety, Denies depression Endocrine: Denies fatigue, Denies weight change Past Medical History Past Medical History: Musculoskeletal Disorder, Renal Disease Additional Past Medical History / Comment(s): Hx migraines, anemia, 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 History of Any Multi-Drug Resistant Organisms: None Reported Past Surgical History: Breast Surgery, Tubal Ligation Additional Past Surgical History / Comment(s): Multiple ureter stents, laparoscopic surgery to removed blockage in ureter, breast augmentation. Past Anesthesia/Blood Transfusion Reactions: No Reported Reaction Past Psychological History: No Psychological Hx Reported Smoking Status: Never smoker Past Alcohol Use History: Occasional Past Drug Use History: None Reported - Past Family History Father Family Medical History: Diabetes Mellitus Mother Family Medical History: No Reported History Medications and Allergies Home Medications Medication Instructions Recorded Confirmed Type Awilda Control Pill 1 tab PO 1200 02/09/20 02/09/20 History HYDROcodone/APAP 7.5-325MG [[place] 1 tab PO Q6HR PRN 3 Days #12 tab 02/11/20 Rx 7.5-325] Ibuprofen [Motrin] 600 mg PO Q6HR PRN #30 tab 02/11/20 Rx Allergies Allergy/AdvReac Type Severity Reaction Status Date / Time No Known Allergies Allergy Verified 02/20/22 11:15 Exam Osteopathic Statement: *. No significant issues noted on an osteopathic s tructural exam other than those noted in the History and Physical/Consult. HEart: RRR Lungs: CTAB Abdomen: soft, nontender Extremeties: neg emory's Assessment and Plan (1) Menorrhagia Status: Acute Code(s): N92.0 - EXCESSIVE AND FREQUENT MENSTRUATION WITH REGULAR CYCLE SNOMED Code(s): 557637913 Plan: D&C hysteroscopy and endometrial ablation with NovaSure
[~2022-02-23 06:03] MED LIST changes: -DEXAMETHASONE SOD PHOSPHATE 10 MG/ML 1 ML VIAL IV ONE; -HYDROmorphone 0.5 MG/0.5 ML SYRINGE IVP PRN; -LACTATED RINGERS 1,000 ML IV SCH; -ONDANSETRON 4 MG/2 ML VIAL IVP ONE
[2022-02-23] MEDS ORDERED: ONDANSETRON 4 MG/2 ML VIAL IVP ONE (06:23)
[2022-02-23] MEDS ORDERED: LACTATED RINGERS 1,000 ML IV SCH (06:23)
[2022-02-23] MEDS ORDERED: DEXAMETHASONE SOD PHOSPHATE 4 MG/ML 1 ML VIAL IV ONE (06:23)
[2022-02-23] MEDS ORDERED: HYDROmorphone 0.5 MG/0.5 ML SYRINGE IVP PRN (07:00)
[2022-02-23] MEDS ORDERED: MIDAZOLAM 2 MG/2 ML VIAL ONE (07:22)
[2022-02-23] MEDS ORDERED: fentaNYL (PF) 50 MCG/ML 2 ML AMP ONE (07:22)
[2022-02-23] MEDS ORDERED: LIDOCAINE 2% INJ 20 MG/ML (2 ML VIAL) ONE (07:22)
[2022-02-23] MEDS ORDERED: PROPOFOL 10 MG/ML 20 ML VIAL IV ONE (07:22)
[2022-02-23] MEDS ORDERED: KETOROLAC 15 MG/ML 1 ML VIAL ONE (07:22)
[2022-02-23] MEDS ORDERED: SILVER NITRATE APPLICATOR 1 EACH STICK..EA. TOPICAL ONE (07:50)
--- NOTE | 2022-02-23 08:00 | P.OP ---
Date of Procedure: 02/23/22 Preoperative Diagnosis: 1. Menorrhagia Postoperative Diagnosis: 1. Menorrhagia Procedure(s) Performed: D&C hysteroscopy, endometrial ablation with NovaSure Anesthesia: UBALDO Surgeon: Yudi De La Rosa Estimated Blood Loss (ml): 1 Pathology: none sent Condition: stable Disposition: PACU Operative Findings: Uterus sounded to 6cm. Cavity length 4.5cm, width, 3.8cm, power 94 W, time of ablation 82 seconds. Description of Procedure: Patient is taken the operating room where general anesthesia was obtained without difficulty. She was prepped and draped in normal sterile fashion dorsal lithotomy position, legs placed in the [employer] cane stirrups. Bladder was drained of all urine. Weighted speculum placed in the vagina and the anterior lip the cervix was grasped with serial tooth tenaculum. The uterus sounded to 6 cm and the cervix under 1.5 cm making the cavity length 4.5 cm. The cervix was dilated to #8 Hegar dilator. Hysteroscopy was then performed. Both ostia were visualized and there was a smooth contour of the uterus. Sharp curet was then gently used to obtain endometrial curettings. The NovaSure was introduced into the uterus with a cavity length of 4.5 cm, width 3.8 cm. after cavity assessment was passed, the time of ablation was 82 seconds at 94 W. Hysteroscopy was again performed and adequate ablation was noted. All instruments removed from the vagina. Patient tolerated the procedure well, sponge and instrument counts were correct 2 and she was taken to recovery in stable condition.
[2022-02-23 08:06] VITALS: TEMP 96.9
[2022-02-23 08:17] VITALS: RESP 16
[2022-02-23 09:08] VITALS: BP 138/84; PULSE 70
== END 2022-02-23 09:25 | disposition home or self-care (01) ==
LOC: OR 06:03
PROVIDERS: ATTEND Obstetrics & Gynecology
DX: N92.0 Excessive and frequent menstruation with regular cycle (principal); N28.9 Disorder of kidney and ureter, unspecified; M79.9 Soft tissue disorder, unspecified; D64.9 Anemia, unspecified; M41.9 Scoliosis, unspecified; Z83.3 Family history of diabetes mellitus; Z98.51 Tubal ligation status
CPT/HCPCS: 81025; 88305; 58563; J2250; J1100; J2405; J3010; J1885; J2704; J2001